=== PATIENT | female | born 1990 | race Two or more races ===

== ENCOUNTER 2024-06-01 08:52 | Emergency (ER) | payer MEDICAID ==
[~2024-06-01] VITALS: Ht 170.2 cm; Wt 87.5 kg
[~2024-06-01 08:52] MED LIST: ALBU8.5H17 INH; AZI25OT PO; BUDE10.22 INH; LACT1CAP26 PO; LORA-269 PO
[2024-06-01 09:23] VITALS: TEMP 97.5
[2024-06-01] MEDS ORDERED: PRED50TA PO (10:12)
[2024-06-01] MEDS ORDERED: BECL10.62 INH (10:12)
[2024-06-01] MEDS: dexamethasone sod phosphate 10mg/ml inj IM STA (10:19)
[2024-06-01] MEDS: ipratropium/albuterol 3ml nebule NEB ONE (10:21)
[2024-06-01 10:24] VITALS: PULSE 92; RESP 20
[2024-06-01] MEDS ORDERED: ALB0.5UD NEB (10:25)
[2024-06-01 10:28] VITALS: PULSE 88; RESP 20; O2SAT 99
[2024-06-01 11:01] VITALS: BP 121/79; PULSE 88; RESP 16; O2SAT 97
== END 2024-06-01 11:02 | disposition home or self-care (01) ==
LOC: ER 08:53
DX: J45.909 Unspecified asthma, uncomplicated (principal); Z79.2 Long term (current) use of antibiotics; Z79.899 Other long term (current) drug therapy
CPT/HCPCS: 96372; 99283; J1100; 94760